=== PATIENT | male | born 1970 | race Hispanic/Latino ===

== ENCOUNTER 2020-01-13 05:28 | Day surgery (SDC) | payer OTHER ==
[2020-01-07 15:15] LABS: BASOPHILS % (AUTO) 1.3 % (0.0-5.0); EOSINOPHILS % (AUTO) 2.4 % (0.0-8.0); HEMATOCRIT 49.1 % (42-54); LYMPHOCYTES % (AUTO) 32.5 % (21.0-51.0); MEAN CORPUSCULAR HEMOGLOBIN 30.5 pg (27.0-33.0); MEAN CORPUSCULAR HGB CONC 35.4 g/dL (32.0-36.0); MONOCYTES % (AUTO) 8.6 % (3.0-13.0); NEUTROPHILS % (AUTO) 54.9 % (40.0-77.0); PLATELET COUNT (AUTO) 219 K/uL (130-400); RED BLOOD CELL COUNT(AUTO) 5.71 MIL/uL (4.50-6.20); RED CELL DISTRIBUTION WIDTH 12.8 % (11.0-15.5); WHITE BLOOD COUNT (AUTO) 6.3 K/uL (4.8-10.8)
[2020-01-07 15:22] LABS: CREATININE 1.1 mg/dL (0.5-1.5); POTASSIUM 4.1 mmol/L (3.5-5.1)
[~2020-01-13] VITALS: Ht 177.8 cm; Wt 86.2 kg
[2020-01-13] VITALS (18 sets, daily range): BP systolic 111–146; BP diastolic 72–86
[2020-01-13] MEDS: CEFAZOLIN SODIUM 1 GM VIAL IVP SCH ×2 (05:00→07:50)
--- NOTE | 2020-01-13 06:15 | NUR ---
POTENTIAL FOR INFECTION: CLIPPED RIGHT KNEE/RT LEG PER TIBURCIO KWON, FOLLOWED BY WIPING WITH MARIELA 2% CHLORHEXIDINE GLUCONATE CLOTH PATIENTS PRE-OP SKIN PREP.
[2020-01-13] MEDS ORDERED: LACTATED RINGERS 1000ML 1,000 ML IV ONE (06:22)
[2020-01-13] MEDS ORDERED: BUPIVACAINE/EPI/PF 0.5% 30ML VIAL IJ ONE (07:00)
[2020-01-13] MEDS ORDERED: BUPIVACAINE/PF 0.5% 30ML VIAL ONE (07:00)
[2020-01-13] MEDS ORDERED: LIDOCAINE PF 2% 5ML ABBOJECT ONE (07:10)
[2020-01-13] MEDS ORDERED: DEXAMETHASONE SOD PHOSPHATE 4 MG/ML 1ML VIAL ONE (07:10)
[2020-01-13] MEDS ORDERED: ONDANSETRON HCL 4 MG/2 ML VIAL ONE (07:10)
[2020-01-13] MEDS ORDERED: MIDAZOLAM HCL 1 MG/ML 2ML VIAL ONE (07:10)
[2020-01-13] MEDS ORDERED: SUCCINYLCHOLINE CHLORIDE 20 MG/ML 10 ML VIAL ONE (07:10)
[2020-01-13] MEDS ORDERED: FENTANYL CITRATE PF 50 MCG/1 ML 2ML VIAL ONE (07:11)
[2020-01-13] MEDS ORDERED: PROPOFOL 10 MG/ML 20ML VIAL IV ONE (07:11)
[2020-01-13] MEDS ORDERED: ROCURONIUM 10MG/1ML SYR 10 MG/ML ML ONE (07:11)
[2020-01-13] MEDS ORDERED: GLYCOPYRROLATE 1 MG/5 ML SYRINGE ONE (08:03)
[2020-01-13] MEDS ORDERED: NEOSTIGMINE 5MG/5ML SYR IV ONE (08:03)
[2020-01-13] MEDS ORDERED: MEPERIDINE-PF 25 MG/ML SYG ONE ×2 (09:12→09:24)
[2020-01-13] MEDS ORDERED: KETOROLAC TROMETHAMINE 30MG/ML ONE (09:31)
--- NOTE | 2020-01-13 09:55 | NUR ---
POST RECEIVED PT FROM PACU, S/P RIGHT KNEE ARTHROSCOPY,DRESSING TO RIGHT KNEE DRY AND INTACT , NEUROVASCULAR CHECKS WNL. PT AWAKE AND ALERT,NO DISTRESS NOTED. PLAN OF CARE DISCUSS WITH PATIENT. VS STABLE ON ARRIVAL
--- NOTE | 2020-01-13 10:40 | NUR ---
dc pt dc home via wc, no distress noted . pt denied any pain or discomforts. right knee dressing dry and intact. pt accompanied by family
== END 2020-01-13 10:40 | disposition home or self-care (01) ==
LOC: DAH 05:28
PROVIDERS: ATTEND Orthopaedic Surgery
DX: S83.241A Other tear of medial meniscus, current injury, right knee, initial encounter (principal); M17.31 Unilateral post-traumatic osteoarthritis, right knee; X58.XXXA Exposure to other specified factors, initial encounter; Y93.89 Activity, other specified; Y92.89 Other specified places as the place of occurrence of the external cause; Y99.8 Other external cause status; Z98.890 Other specified postprocedural states
CPT/HCPCS: 29881; 36415; 80048; 85025; 87635; 93005; A4213; A4215; A4221; A4222; A4223; A4606; A4649 ×2; A4663; A4930; A5120; A6223; A6260; J0330; J0690; J1100; J1885; J2001; J2175 ×2; J2250; J2405; J2704; J2710; J3010; J3490 ×2; J7030; J7120